=== PATIENT | female | born 1970 | race Caucasian/White ===

== ENCOUNTER 2022-06-19 08:40 | Outpatient (CLI) | payer OTHER, SELFPAY | END 2022-06-19 08:41 | disposition home or self-care (01) | LOC: NFLDREF 06-21 13:20 | PROVIDERS: PCP Emergency Medicine; Referring Provider Emergency Medicine; Visit Provider Emergency Medicine | DX: Z00.00 Encounter for general adult medical examination without abnormal findings (principal); M85.80 Other specified disorders of bone density and structure, unspecified site; D50.9 Iron deficiency anemia, unspecified; Z13.6 Encounter for screening for cardiovascular disorders | CPT/HCPCS: 80048; 80061; 82306 ==

== ENCOUNTER 2022-06-21 15:34 | Outpatient (CLI) | payer OTHER, SELFPAY | END 2022-06-21 15:35 | disposition home or self-care (01) | LOC: LKVREF 15:34 | PROVIDERS: PCP Emergency Medicine; Visit Provider Emergency Medicine | DX: Z00.00 Encounter for general adult medical examination without abnormal findings (principal); D50.9 Iron deficiency anemia, unspecified | CPT/HCPCS: 82728 ==

== ENCOUNTER 2022-10-21 19:23 | Outpatient (CLI) | payer OTHER, SELFPAY ==
--- NOTE | 2022-10-31 08:34 | W.PM.SLEEP ---
Sleep Study Details Details Interpreting Provider: Karina Date of Sleep Study: 10/21/22 Sleep Study Details: STUDY TYPE:? Home unattended ? BMI:? 28 ORDERING PROVIDER:Caio Collins INDICATION:? Concerns about sleep apnea ? SLEEP SUMMARY:? 397.5 minutes monitored RESPIRATORY SUMMARY:? AHI 2.6, supine 6.8, left lateral 1.5, right lateral 2.7 Low oxygen 91 Snoring minimal PERIODIC LIMB MOVEMENTS OF SLEEP:? Not recorded during home study CARDIAC:? Range 56-111 mean 69.5 IMPRESSION:? The overall study is within normal limits and does not suggest clinically significant obstructive sleep apnea. However the patient does have mild sleep apnea in the supine position. Would recommend avoidance of supine sleep. RECOMMENDATION: []
== END 2022-10-21 19:24 | disposition home or self-care (01) ==
LOC: SLEEP 19:25
PROVIDERS: PCP Emergency Medicine; Visit Provider Otolaryngology
DX: G47.30 Sleep apnea, unspecified (principal)
CPT/HCPCS: 95806

== ENCOUNTER 2022-11-09 11:10 | Outpatient (CLI) | payer OTHER, SELFPAY | END 2022-11-09 11:11 | disposition home or self-care (01) | LOC: NFLDREF 11-10 12:13 | PROVIDERS: PCP Emergency Medicine; Referring Provider Emergency Medicine; Visit Provider Emergency Medicine | DX: E61.1 Iron deficiency (principal) | CPT/HCPCS: 82728 ==

== ENCOUNTER 2024-04-23 08:35 | Outpatient (CLI) | payer OTHER, SELFPAY | END 2024-04-23 08:36 | disposition home or self-care (01) | LOC: NFLDREF 04-27 18:53 | PROVIDERS: PCP Emergency Medicine; Referring Provider Emergency Medicine; Visit Provider Emergency Medicine | DX: E61.1 Iron deficiency (principal); D50.9 Iron deficiency anemia, unspecified; M85.80 Other specified disorders of bone density and structure, unspecified site; K90.0 Celiac disease | CPT/HCPCS: 80048; 80061; 82306; 82607; 82728 ==

== ENCOUNTER 2024-04-29 13:24 | Outpatient (CLI) | payer OTHER, SELFPAY ==
[2024-05-01 19:19] LABS: HPV Source Cervical; HPV, High Risk by TMA Not Detected
[2024-05-12 14:45] LABS: Pap Test Reviewed by Path Done
== END 2024-04-29 13:25 | disposition home or self-care (01) ==
PROVIDERS: PCP Emergency Medicine; Visit Provider Emergency Medicine
DX: Z12.4 Encounter for screening for malignant neoplasm of cervix (principal); Z11.51 Encounter for screening for human papillomavirus (HPV)
CPT/HCPCS: 87624; 87625; 88141; 88142

== ENCOUNTER 2024-05-07 14:13 | Outpatient (CLI) | payer OTHER, SELFPAY | END 2024-05-07 14:14 | disposition home or self-care (01) | LOC: RAD 14:13 | PROVIDERS: PCP Emergency Medicine; Visit Provider Emergency Medicine | DX: Z13.820 Encounter for screening for osteoporosis (principal); Z87.81 Personal history of (healed) traumatic fracture | CPT/HCPCS: 77080 ==